=== PATIENT | male | born 1995 | race Caucasian/White ===

== ENCOUNTER → 2017-05-31 | Outpatient (CLI) | payer OTHER ==
[~2017-05-31] MED LIST: ALBU8.5H5 INH; GADOBUTROL 7.5 MMOL/7.5 ML PFS ONE
== END | disposition home or self-care (01) ==
LOC: RAD 17:04
PROVIDERS: ATTEND Family Medicine
DX: M54.5 Low back pain (principal)
CPT/HCPCS: 72158; A9585

== ENCOUNTER 2018-07-13 10:15 | Emergency (ER) | payer OTHER ==
[~2018-07-13] VITALS: Ht 172.7 cm; Wt 59.5 kg
[~2018-07-13 10:15] MED LIST changes: -GADOBUTROL 7.5 MMOL/7.5 ML PFS ONE
[2018-07-13 10:20] VITALS: BP 143/80
[2018-07-13] MEDS ORDERED: CEFTRIAXONE 1,000 MG ONE (10:52)
[2018-07-13] MEDS ORDERED: LIDOCAINE-MPF 1%, 2ML ONE (10:52)
[2018-07-13] MEDS ORDERED: LIDOCAINE-MPF 1%, 5ML ONE (10:52)
[2018-07-13] MEDS ORDERED: CEFTRIAXONE 1,000 MG IM ONE (11:00)
== END 2018-07-13 11:12 | disposition home or self-care (01) ==
LOC: ED 11:00
DX: K02.9 Dental caries, unspecified (principal); F17.200 Nicotine dependence, unspecified, uncomplicated
CPT/HCPCS: 96372; 99283; J0696

== ENCOUNTER 2018-10-26 13:05 | Inpatient (IN) | payer OTHER ==
[~2018-10-26] VITALS: Ht 172.7 cm; Wt 66.8 kg
--- NOTE | 2018-10-26 14:11 | NUR ---
PT PRESENTED TO ED WITH LEFT HIP PAIN. PT FELL SNOW BOARDING AND THEN WAS ABLE TO WALK. TODAY PT WAS SITTING IN A CHAIR FOR 12 HOURS AND UNABLE TO GET UP. PT A&OX4. PT PLACED IN ROOM AND PLACED ON BP AND CONT. PULSE OXIMETER. ASSESSMENT COMPLETED. PT WAS SEEN IN PIT AND RADIOLOGY AND LAB RESULTS PENDING.
[2018-10-26 14:13] LABS: MEAN CORPUSCULAR HGB CONC 34.1 g/dL (33.2-36.2); MEAN CORPUSCULAR VOLUME 90.7 fL (81-97); MEAN PLATELET VOLUME 8.3 fL (7.4-10.4); PLATELET COUNT 278 x10^3/uL (130-400); RED CELL DISTRIBUTION WIDTH 13.5 % (9.4-14.8)
[2018-10-26 14:22] LABS: ALANINE AMINOTRANSFERASE 19 U/L (12-78); ALBUMIN 2.7 g/dL (3.4-5.0); ANION GAP 8 mmol/L (5-15); CALCIUM 8.6 mg/dL (8.5-10.1); CHLORIDE 103 mmol/L (98-107)
[2018-10-26 14:24] LABS: ALKALINE PHOSPHATASE 123 U/L (45-117); BILIRUBIN,TOTAL 0.8 mg/dL (0.2-1.0); TOTAL PROTEIN 7.6 g/dL (6.4-8.2)
[2018-10-26 14:48] LABS: BASOPHILS # (AUTO) 0.03 x10^3/uL (0-0.3); BASOPHILS % (AUTO) 0 % (0-1); EOSINOPHILS # (AUTO) 0.06 x10^3/uL (0-0.8); EOSINOPHILS % (AUTO) 0 % (1-7); LYMPHOCYTES # (AUTO) 0.96 x10^3/uL (1-6.1); LYMPHOCYTES % (AUTO) 5 % (22-44); MD SCAN; MONOCYTES # (AUTO) 0.58 x10^3/uL (0-1.4); MONOCYTES % (AUTO) 3 % (2-9); NEUTROPHILS # (AUTO) 16.18 x10^3/uL (1.8-8.0); NEUTROPHILS % (AUTO) 91 % (42-75)
[2018-10-26 14:56] LABS: MICROSCOPIC AUTO
[2018-10-26 15:00] LABS: CULTURE INDICATED? NO
[2018-10-26] MEDS ORDERED: KETOROLAC 30 MG/1 ML ONE (15:53)
[2018-10-26] MEDS ORDERED: SODIUM CHLORIDE 0.9% 1,000ML IVBOLUS ONE (16:00)
[2018-10-26] MEDS ORDERED: KETOROLAC 30 MG/1 ML IVPush ONE (16:00)
[2018-10-26] MEDS ORDERED: SODIUM CHLORIDE FLUSH 10ML SYR IVF ONE (16:00)
--- NOTE | 2018-10-26 16:00 | NUR ---
PT WITH SEVERE PAIN LEFT HIP.
--- NOTE | 2018-10-26 17:30 | NUR ---
MULTIPLE ATTEMPTS FOR IV X 5. UNSUCCESSFUL. ULTRA SOUND GUIDED IV STARTED. PT TOLERATED WELL.
--- NOTE | 2018-10-26 18:00 | NUR ---
PT AWAITING CT SCAN. CT CALLED AND ALERTED THAT PT IS READY
--- NOTE | 2018-10-26 18:39 | NUR ---
pt taken to ct scan
--- NOTE | 2018-10-26 18:49 | NUR ---
PT BACK FROM CT SCAN.
--- NOTE | 2018-10-26 18:58 | NUR ---
REPORT GIVEN TO ESTEFANIA DE LEON
[2018-10-26] MEDS ORDERED: OMNIPAQUE 350 MG/ML, 100ML BOTTLE ONE (19:19)
[2018-10-26] MEDS ORDERED: PIPERACILLIN/TAZO/PMX 4.5GM 100 ML IV ONE (19:30)
[2018-10-26] MEDS ORDERED: SODIUM CHLORIDE FLUSH 10ML SYR IVF PRN (19:30)
[2018-10-26] MEDS ORDERED: MORPHINE SULFATE 4 MG/ML, 1ML IVPush PRN (19:30)
--- NOTE | 2018-10-26 19:40 | NUR ---
BLOOD CULTURES X 2 DRAWN, IV ABX STARTED. PT TOLERATING WELL.
[2018-10-26] MEDS ORDERED: VANCOMYCIN PER PHARMACY MC PRN (20:00)
[2018-10-26] MEDS ORDERED: BISACODYL 10 MG SUPP PR PRN (20:00)
[2018-10-26] MEDS: NICOTINE 21 MG/24 HR PATCH.TD24 TD SCH ×2 (20:00→20:41)
[2018-10-26] MEDS ORDERED: POLYETHYLENE GLYCOL 17 GM PACKET PO PRN (20:00)
[2018-10-26] MEDS ORDERED: POTASSIUM CHLORIDE 20 MEQ TAB.ER.PRT PO ONE (20:00)
[2018-10-26] MEDS ORDERED: PHARMACOKINETIC MONITORING MC PRN (20:30)
[2018-10-26] MEDS ORDERED: PHARMACOKINETIC CONSULTATION MC ONE (20:30)
[2018-10-26] MEDS: SODIUM CHLORIDE 0.9% 1,000 ML IV SCH (20:40)
[2018-10-26] MEDS: morphine SULFATE 10 MG/ML, 1ML IVPush PRN (20:41)
[2018-10-26] MEDS: KETOROLAC 30 MG/1 ML IVPush SCH (20:41)
[2018-10-26 20:49] VITALS: BP 119/66
[2018-10-26 21:28] LABS: AMPHETAMINE SCREEN, URINE Negative (Negative); BARBITURATE SCREEN, URINE Negative (Negative); BENZODIAZEPINE SCREEN, URINE Negative (Negative); CANNABINOID SCREEN, URINE Positive (Negative); COCAINE SCREEN, URINE Negative (Negative); METHADONE SCREEN, URINE Negative (Negative); OPIATE SCREEN, URINE Negative (Negative)
[2018-10-26] MEDS: PIPERACILLIN/TAZO/PMX 3.375GM 50 ML IV SCH (21:43)
[2018-10-26] MEDS: VANCOMYCIN 1,300 MG in SODIUM CHLORIDE 0.9% 250 ML IV SCH (22:47)
[2018-10-27 01:51] VITALS: BP 111/66
[2018-10-27] MEDS: KETOROLAC 30 MG/1 ML IVPush SCH ×4 (02:03→20:05)
[2018-10-27] MEDS: morphine SULFATE 10 MG/ML, 1ML IVPush PRN ×6 (02:03→22:20)
[2018-10-27] MEDS: PIPERACILLIN/TAZO/PMX 3.375GM 50 ML IV SCH ×4 (03:38→21:06)
[2018-10-27 08:05] VITALS: BP 122/62
[2018-10-27] MEDS: SENNA/DOCUSATE TABLET PO SCH (08:22)
[2018-10-27] MEDS: SODIUM CHLORIDE 0.9% 1,000 ML IV SCH ×2 (08:26→21:05)
[2018-10-27 09:57] LABS: MEAN CORPUSCULAR HEMOGLOBIN 30.3 pg (27.5-34.5); MEAN CORPUSCULAR HGB CONC 33.4 g/dL (33.2-36.2); MEAN CORPUSCULAR VOLUME 90.8 fL (81-97); MEAN PLATELET VOLUME 8.6 fL (7.4-10.4); PLATELET COUNT 277 x10^3/uL (130-400); RED BLOOD COUNT 4.52 x10^6/uL (4.38-5.82); RED CELL DISTRIBUTION WIDTH 13.7 % (9.4-14.8)
[2018-10-27 10:08] LABS: ALBUMIN 2.2 g/dL (3.4-5.0); ANION GAP 7 mmol/L (5-15); CALCIUM 8.6 mg/dL (8.5-10.1); CHLORIDE 105 mmol/L (98-107)
[2018-10-27 10:13] LABS: ALANINE AMINOTRANSFERASE 15 U/L (12-78); ALKALINE PHOSPHATASE 120 U/L (45-117); BILIRUBIN,TOTAL 0.7 mg/dL (0.2-1.0); CREATININE 0.85 mg/dL (0.7-1.3); TOTAL PROTEIN 6.2 g/dL (6.4-8.2)
[2018-10-27 10:39] LABS: MD YES
[2018-10-27 10:41] LABS: <PLATELET ESTIMATE> ADEQUATE; <PLT MORPHOLOGY> NORMAL PLT MORPH; ANISOCYTOSIS 1+; BAND#(MANUAL) 3.24 x10^3/uL; BANDS%(MANUAL) 20 % (0-7); EOS#(MANUAL) 0.16 x10^3/uL (0.0-0.8); EOS% (MANUAL) 1 % (1-7); LYMPH#(MANUAL) 0.97 x10^3/uL (1-6.1); LYMPHS% (MANUAL) 6 % (22-44); MONOS#(MANUAL) 1.13 x10^3/uL (0.3-2.7); MONOS% (MANUAL) 7 % (2-9); SEG#(MANUAL) 10.69 x10^3/uL (1.8-8); SEGS% (MANUAL) 66 % (42-75)
[2018-10-27] MEDS: VANCOMYCIN 1,300 MG in SODIUM CHLORIDE 0.9% 250 ML IV SCH ×2 (11:21→23:06)
[2018-10-27 13:18] VITALS: BP 136/79
[2018-10-27] MEDS: ACETAMINOPHEN 325 MG TABLET PO PRN (18:51)
[2018-10-27 19:46] VITALS: BP 106/68
[2018-10-28 01:15] VITALS: BP 121/75
[2018-10-28] MEDS: KETOROLAC 30 MG/1 ML IVPush SCH ×4 (01:46→20:36)
[2018-10-28] MEDS: PIPERACILLIN/TAZO/PMX 3.375GM 50 ML IV SCH ×2 (03:19→07:52)
[2018-10-28 05:39] LABS: MEAN CORPUSCULAR HEMOGLOBIN 30.9 pg (27.5-34.5); MEAN CORPUSCULAR VOLUME 90.7 fL (81-97); MEAN PLATELET VOLUME 9.3 fL (7.4-10.4); PLATELET COUNT 270 x10^3/uL (130-400); RED BLOOD COUNT 4.55 x10^6/uL (4.38-5.82); RED CELL DISTRIBUTION WIDTH 14.1 % (9.4-14.8)
[2018-10-28 05:40] LABS: ANION GAP 7 mmol/L (5-15); CALCIUM 8.2 mg/dL (8.5-10.1); CHLORIDE 108 mmol/L (98-107); CREATININE 0.78 mg/dL (0.7-1.3)
[2018-10-28 06:15] LABS: BASOPHILS # (AUTO) 0.07 x10^3/uL (0-0.3); BASOPHILS % (AUTO) 0 % (0-1); EOSINOPHILS # (AUTO) 0.07 x10^3/uL (0-0.8); EOSINOPHILS % (AUTO) 0 % (1-7); LYMPHOCYTES # (AUTO) 2.49 x10^3/uL (1-6.1); LYMPHOCYTES % (AUTO) 16 % (22-44); MD SCAN; MONOCYTES # (AUTO) 1.02 x10^3/uL (0-1.4); MONOCYTES % (AUTO) 6 % (2-9); NEUTROPHILS # (AUTO) 12.38 x10^3/uL (1.8-8.0); NEUTROPHILS % (AUTO) 77 % (42-75)
[2018-10-28 07:04] LABS: HCT (SEDRATE) 41.3 % (39.2-51.8)
[2018-10-28] MEDS: SENNA/DOCUSATE TABLET PO SCH (07:52)
[2018-10-28] MEDS: SODIUM CHLORIDE 0.9% 1,000 ML IV SCH ×2 (07:52→17:38)
[2018-10-28] MEDS: NICOTINE 21 MG/24 HR PATCH.TD24 TD SCH (07:53)
[2018-10-28 08:43] VITALS: BP 136/80
[2018-10-28] MEDS: morphine SULFATE 10 MG/ML, 1ML IVPush PRN ×2 (09:48→19:17)
[2018-10-28] MEDS: VANCOMYCIN 1,300 MG in SODIUM CHLORIDE 0.9% 250 ML IV SCH ×2 (09:48→22:33)
[2018-10-28] MEDS: OxyconTIN ER 10 MG TAB.ER PO SCH ×2 (11:22→22:33)
[2018-10-28 15:09] VITALS: BP 134/75
[2018-10-28] MEDS: ACETAMINOPHEN 325 MG TABLET PO PRN (15:18)
[2018-10-28 19:12] VITALS: BP 122/78
[2018-10-28] MEDS: ONDANSETRON 2MG/ML, 2ML IVPush PRN (20:39)
[2018-10-29 01:26] VITALS: BP 131/79
[2018-10-29] MEDS: morphine SULFATE 10 MG/ML, 1ML IVPush PRN ×4 (01:39→21:26)
[2018-10-29] MEDS: KETOROLAC 30 MG/1 ML IVPush SCH ×4 (02:21→19:49)
[2018-10-29] MEDS: SODIUM CHLORIDE 0.9% 1,000 ML IV SCH ×2 (04:22→14:11)
[2018-10-29 08:00] VITALS: BP 135/81
[2018-10-29] MEDS: SENNA/DOCUSATE TABLET PO SCH (08:47)
[2018-10-29] MEDS: NICOTINE 21 MG/24 HR PATCH.TD24 TD SCH (08:47)
[2018-10-29] MEDS: VANCOMYCIN 1,300 MG in SODIUM CHLORIDE 0.9% 250 ML IV SCH ×2 (10:00→19:49)
[2018-10-29] MEDS: OxyconTIN ER 10 MG TAB.ER PO SCH ×2 (10:40→22:49)
[2018-10-29] MEDS ORDERED: VANCOMYCIN 1,500 MG in SODIUM CHLORIDE 0.9% 250 ML IV ONE (11:00)
[2018-10-29 14:00] VITALS: BP 126/78
[2018-10-29] MEDS: ONDANSETRON 2MG/ML, 2ML IVPush PRN (17:52)
[2018-10-29 19:31] VITALS: BP 141/78
[2018-10-29] MEDS: ACETAMINOPHEN 325 MG TABLET PO PRN (19:49)
[2018-10-30 01:15] VITALS: BP 133/75
[2018-10-30] MEDS: morphine SULFATE 10 MG/ML, 1ML IVPush PRN (03:25)
[2018-10-30] MEDS: KETOROLAC 30 MG/1 ML IVPush SCH ×4 (03:25→21:42)
[2018-10-30] MEDS: VANCOMYCIN 1,300 MG in SODIUM CHLORIDE 0.9% 250 ML IV SCH ×3 (03:30→20:27)
[2018-10-30] MEDS: SODIUM CHLORIDE 0.9% 1,000 ML IV SCH (03:30)
[2018-10-30 08:25] VITALS: BP 153/73
[2018-10-30] MEDS: MORPHINE SULFATE 4 MG/ML, 1ML IVPush PRN ×4 (08:26→22:23)
[2018-10-30] MEDS: SENNA/DOCUSATE TABLET PO SCH (09:00)
[2018-10-30] MEDS: NICOTINE 21 MG/24 HR PATCH.TD24 TD SCH (09:00)
[2018-10-30 09:15] LABS: ANION GAP 9 mmol/L (5-15); CALCIUM 7.8 mg/dL (8.5-10.1); CHLORIDE 106 mmol/L (98-107)
[2018-10-30 09:16] LABS: CREATININE 0.64 mg/dL (0.7-1.3)
[2018-10-30 09:30] LABS: MEAN CORPUSCULAR HGB CONC 33.7 g/dL (33.2-36.2); MEAN CORPUSCULAR VOLUME 88.9 fL (81-97); MEAN PLATELET VOLUME 8.7 fL (7.4-10.4); PLATELET COUNT 309 x10^3/uL (130-400); RED BLOOD COUNT 4.08 x10^6/uL (4.38-5.82); RED CELL DISTRIBUTION WIDTH 13.7 % (9.4-14.8)
[2018-10-30 09:44] LABS: MD YES
[2018-10-30 09:47] LABS: BAND#(MANUAL) 0.83 x10^3/uL; BANDS%(MANUAL) 4 % (0-7); EOS#(MANUAL) 0.21 x10^3/uL (0.0-0.8); EOS% (MANUAL) 1 % (1-7); LYMPH#(MANUAL) 2.29 x10^3/uL (1-6.1); LYMPHS% (MANUAL) 11 % (22-44); MONOS#(MANUAL) 1.66 x10^3/uL (0.3-2.7); MONOS% (MANUAL) 8 % (2-9); SEG#(MANUAL) 15.81 x10^3/uL (1.8-8); SEGS% (MANUAL) 76 % (42-75)
[2018-10-30 09:48] LABS: <PLT MORPHOLOGY> NORMAL PLT MORPH; ANISOCYTOSIS 1+; TOXIC GRAN 1+
[2018-10-30 09:49] LABS: <PLATELET ESTIMATE> ADEQUATE
[2018-10-30] MEDS: OxyconTIN ER 10 MG TAB.ER PO SCH ×2 (10:23→22:51)
[2018-10-30] MEDS ORDERED: LORazepam 0.5MG TABLET PO ONE (11:30)
[2018-10-30 14:03] VITALS: BP 130/76
[2018-10-30] MEDS: LACTOBACILLUS CHEW TABLET PO SCH ×2 (15:12→20:27)
[2018-10-30 19:33] VITALS: BP 146/81
[2018-10-30] MEDS: ACETAMINOPHEN 325 MG TABLET PO PRN (20:27)
[2018-10-30] MEDS ORDERED: POTASSIUM CHLORIDE 20 MEQ TAB.ER.PRT PO ONE (20:30)
[2018-10-30] MEDS: ONDANSETRON 2MG/ML, 2ML IVPush PRN (20:40)
[2018-10-31 01:04] VITALS: BP 130/75
[2018-10-31] MEDS: KETOROLAC 30 MG/1 ML IVPush SCH ×3 (03:38→15:42)
[2018-10-31] MEDS: VANCOMYCIN 1,300 MG in SODIUM CHLORIDE 0.9% 250 ML IV SCH (03:38)
[2018-10-31] MEDS: MORPHINE SULFATE 4 MG/ML, 1ML IVPush PRN ×4 (08:00→23:59)
[2018-10-31 08:31] VITALS: BP 145/84
[2018-10-31] MEDS: NICOTINE 21 MG/24 HR PATCH.TD24 TD SCH (09:00)
[2018-10-31] MEDS: SENNA/DOCUSATE TABLET PO SCH (09:00)
[2018-10-31] MEDS: LACTOBACILLUS CHEW TABLET PO SCH ×3 (09:54→22:02)
[2018-10-31] MEDS: OxyconTIN ER 10 MG TAB.ER PO SCH ×2 (09:54→22:02)
[2018-10-31 11:55] LABS: CLOSTRIDIUM DIFFICILE ANTIGEN NEGATIVE; CLOSTRIDIUM DIFFICILE TOXIN NEGATIVE (Negative)
[2018-10-31] MEDS: CEFTAROLINE 600 MG in SODIUM CHLORIDE 0.9% 100 ML IV SCH (12:37)
[2018-10-31 13:03] VITALS: BP 131/77
[2018-10-31] MEDS: VANCOMYCIN 1,500 MG in SODIUM CHLORIDE 0.9% 250 ML IV SCH ×2 (14:01→22:02)
[2018-10-31] MEDS ORDERED: MIDAZOLAM 1 MG/ML, 2ML ONE (17:58)
[2018-10-31] MEDS ORDERED: FENTANYL PF 250 MCG/5ML ONE ×2 (17:58→18:47)
[2018-10-31] MEDS ORDERED: ALBUTEROL SULFATE 2.5 MG/3 ML NPPB PRN (19:00)
[2018-10-31] MEDS ORDERED: DIAZEPAM 5 MG/ML, 2ML IVPush PRN (19:00)
[2018-10-31] MEDS ORDERED: FENTANYL PF 100 MCG/2ML IV PRN (19:00)
[2018-10-31] MEDS ORDERED: ONDANSETRON ODT 8 MG PO PRN (19:00)
[2018-10-31] MEDS ORDERED: MORPHINE SULFATE 4 MG/ML, 1ML IVPush PRN (19:00)
[2018-10-31] MEDS ORDERED: ACETAMINOPHEN 325 MG TABLET PO PRN (19:00)
[2018-10-31] MEDS ORDERED: PROMETHAZINE 25 MG/ML, 1ML IV PRN (19:00)
[2018-10-31] MEDS ORDERED: HALOPERIDOL 5 MG/ML IV PRN (19:00)
[2018-10-31] MEDS ORDERED: PROMETHAZINE 12.5 MG SUPP PR PRN (19:00)
[2018-10-31] MEDS ORDERED: EPHEDRINE 50 MG/ML, 1ML IVPush PRN (19:00)
[2018-10-31] MEDS ORDERED: LABETALOL 5MG/ML, 20ML IV PRN (19:00)
[2018-10-31] MEDS ORDERED: MEPERIDINE/PF 25MG/0.5ML IVPush PRN (19:00)
[2018-10-31] MEDS ORDERED: hydrALAzine 20 MG/ML, 1ML IV PRN (19:00)
[2018-10-31] MEDS ORDERED: OXYcodone 5 MG/5 ML ORAL.SOL UDC PO PRN (19:00)
[2018-10-31] MEDS ORDERED: ONDANSETRON 2MG/ML, 2ML IV PRN (19:00)
[2018-10-31] MEDS ORDERED: MIDAZOLAM 1 MG/ML, 2ML IV PRN (19:00)
[2018-10-31] MEDS ORDERED: PROPOFOL 10 MG/ML, 20ML ONE ×2 (19:12→19:17)
[2018-10-31] MEDS ORDERED: SUCCINYLCHOLINE 20 MG/ML, 10ML ONE (19:17)
[2018-10-31] MEDS ORDERED: ROCURONIUM 10MG/ML,5ML ONE (19:17)
[2018-10-31] MEDS ORDERED: ONDANSETRON 2MG/ML, 2ML ONE (19:18)
[2018-10-31] MEDS ORDERED: FENTANYL PF 100 MCG/2ML ONE ×2 (19:31→19:35)
[2018-10-31] MEDS ORDERED: HYDROmorphone 2 MG/ML, 1ML ONE (19:35)
[2018-10-31] MEDS ORDERED: OXYcodone 5 MG/5 ML ORAL.SOL UDC ONE (19:36)
[2018-10-31] MEDS: HYDROmorphone 2 MG/ML, 1ML IVPush PRN ×3 (20:02→20:23)
[2018-11-01] MEDS: CEFTAROLINE 600 MG in SODIUM CHLORIDE 0.9% 100 ML IV SCH ×2 (00:04→12:36)
[2018-11-01] MEDS: ACETAMINOPHEN 325 MG TABLET PO PRN ×4 (02:26→20:02)
[2018-11-01] MEDS: MORPHINE SULFATE 4 MG/ML, 1ML IVPush PRN ×6 (04:07→21:42)
[2018-11-01] MEDS: VANCOMYCIN 1,500 MG in SODIUM CHLORIDE 0.9% 250 ML IV SCH ×3 (05:33→21:57)
[2018-11-01 05:46] LABS: MEAN CORPUSCULAR HEMOGLOBIN 29.6 pg (27.5-34.5); MEAN CORPUSCULAR HGB CONC 33.1 g/dL (33.2-36.2); MEAN CORPUSCULAR VOLUME 89.4 fL (81-97); MEAN PLATELET VOLUME 8.7 fL (7.4-10.4); PLATELET COUNT 307 x10^3/uL (130-400); RED BLOOD COUNT 4.14 x10^6/uL (4.38-5.82); RED CELL DISTRIBUTION WIDTH 13.8 % (9.4-14.8)
[2018-11-01 05:57] LABS: ANION GAP 8 mmol/L (5-15); CALCIUM 7.9 mg/dL (8.5-10.1); CHLORIDE 101 mmol/L (98-107); CREATININE 0.62 mg/dL (0.7-1.3)
[2018-11-01 06:51] LABS: MD YES
[2018-11-01 07:16] LABS: BAND#(MANUAL) 1.77 x10^3/uL; BANDS%(MANUAL) 10 % (0-7); EOS#(MANUAL) 0.35 x10^3/uL (0.0-0.8); EOS% (MANUAL) 2 % (1-7); LYMPH#(MANUAL) 1.06 x10^3/uL (1-6.1); LYMPHS% (MANUAL) 6 % (22-44); SEG#(MANUAL) 14.51 x10^3/uL (1.8-8); SEGS% (MANUAL) 82 % (42-75)
[2018-11-01 07:18] LABS: <PLATELET ESTIMATE> ADEQUATE; <PLT MORPHOLOGY> NORMAL PLT MORPH; ANISOCYTOSIS 1+
[2018-11-01 07:43] VITALS: BP 133/82
[2018-11-01] MEDS: NICOTINE 21 MG/24 HR PATCH.TD24 TD SCH (09:00)
[2018-11-01] MEDS: SENNA/DOCUSATE TABLET PO SCH (09:00)
[2018-11-01] MEDS: LACTOBACILLUS CHEW TABLET PO SCH ×3 (09:50→19:57)
[2018-11-01] MEDS: OxyconTIN ER 10 MG TAB.ER PO SCH ×2 (09:50→22:38)
[2018-11-01 15:41] VITALS: BP 121/82
[2018-11-01] MEDS ORDERED: LORazepam 2 MG/ML, 1ML IVPush ONE (16:00)
[2018-11-01] MEDS ORDERED: MORPHINE SULFATE 4 MG/ML, 1ML IVPush ONE (16:00)
[2018-11-01 19:32] VITALS: BP 138/82
[2018-11-02] MEDS: CEFTAROLINE 600 MG in SODIUM CHLORIDE 0.9% 100 ML IV SCH ×2 (00:04→11:28)
[2018-11-02] MEDS: MORPHINE SULFATE 4 MG/ML, 1ML IVPush PRN ×6 (01:32→21:08)
[2018-11-02 02:00] VITALS: BP 121/70
[2018-11-02 05:12] LABS: MEAN CORPUSCULAR HEMOGLOBIN 30.6 pg (27.5-34.5); MEAN CORPUSCULAR HGB CONC 34.7 g/dL (33.2-36.2); MEAN CORPUSCULAR VOLUME 88.2 fL (81-97); MEAN PLATELET VOLUME 8.5 fL (7.4-10.4); PLATELET COUNT 476 x10^3/uL (130-400); RED BLOOD COUNT 4.13 x10^6/uL (4.38-5.82); RED CELL DISTRIBUTION WIDTH 14.2 % (9.4-14.8)
[2018-11-02 05:19] LABS: CHLORIDE 104 mmol/L (98-107)
[2018-11-02 05:30] LABS: ANION GAP 10 mmol/L (5-15); CALCIUM 8.3 mg/dL (8.5-10.1); CREATININE 0.71 mg/dL (0.7-1.3); VANCOMYCIN,TROUGH 12.7 mcg/mL (5.0-10.0)
[2018-11-02] MEDS: VANCOMYCIN 1,600 MG in SODIUM CHLORIDE 0.9% 250 ML IV SCH ×3 (06:02→22:36)
[2018-11-02 06:16] LABS: BASOPHILS % (AUTO) 0 % (0-1); EOSINOPHILS # (AUTO) 0.12 x10^3/uL (0-0.8); EOSINOPHILS % (AUTO) 1 % (1-7); LYMPHOCYTES # (AUTO) 2.18 x10^3/uL (1-6.1); LYMPHOCYTES % (AUTO) 12 % (22-44); MD SCAN; MONOCYTES # (AUTO) 0.07 x10^3/uL (0-1.4); MONOCYTES % (AUTO) 0 % (2-9); NEUTROPHILS % (AUTO) 87 % (42-75)
[2018-11-02 08:15] VITALS: BP 103/72
[2018-11-02] MEDS: LACTOBACILLUS CHEW TABLET PO SCH ×3 (08:23→21:08)
[2018-11-02] MEDS: SENNA/DOCUSATE TABLET PO SCH (08:23)
[2018-11-02] MEDS: NICOTINE 21 MG/24 HR PATCH.TD24 TD SCH (08:24)
[2018-11-02] MEDS: OxyconTIN ER 10 MG TAB.ER PO SCH ×2 (10:20→22:36)
[2018-11-02] MEDS ORDERED: morphine SULFATE 10 MG/ML, 1ML IVPush ONE (13:00)
[2018-11-02] MEDS ORDERED: LORazepam 2 MG/ML, 1ML IVPush ONE (13:00)
[2018-11-02 13:20] VITALS: BP 122/73
[2018-11-02] MEDS ORDERED: GADOBUTROL 7.5 MMOL/7.5 ML PFS ONE (14:40)
[2018-11-02 19:57] VITALS: BP 133/78
[2018-11-03 00:45] VITALS: BP 122/74
[2018-11-03] MEDS: CEFTAROLINE 600 MG in SODIUM CHLORIDE 0.9% 100 ML IV SCH ×2 (01:23→16:57)
[2018-11-03] MEDS: MORPHINE SULFATE 4 MG/ML, 1ML IVPush PRN ×7 (01:23→21:15)
[2018-11-03 05:39] LABS: ANION GAP 5 mmol/L (5-15); CALCIUM 8.7 mg/dL (8.5-10.1); CHLORIDE 107 mmol/L (98-107)
[2018-11-03 05:44] LABS: CREATININE 0.73 mg/dL (0.7-1.3); VANCOMYCIN,TROUGH 23.8 mcg/mL (5.0-10.0)
[2018-11-03 05:56] LABS: BASOPHILS % (AUTO) 1 % (0-1); EOSINOPHILS # (AUTO) 0.26 x10^3/uL (0-0.8); EOSINOPHILS % (AUTO) 2 % (1-7); LYMPHOCYTES # (AUTO) 2.85 x10^3/uL (1-6.1); LYMPHOCYTES % (AUTO) 17 % (22-44); MD NO; MEAN CORPUSCULAR HEMOGLOBIN 30.4 pg (27.5-34.5); MEAN CORPUSCULAR HGB CONC 34.1 g/dL (33.2-36.2); MEAN CORPUSCULAR VOLUME 89.1 fL (81-97); MEAN PLATELET VOLUME 8.4 fL (7.4-10.4); MONOCYTES # (AUTO) 0.88 x10^3/uL (0-1.4); MONOCYTES % (AUTO) 5 % (2-9); NEUTROPHILS # (AUTO) 12.92 x10^3/uL (1.8-8.0); NEUTROPHILS % (AUTO) 76 % (42-75); PLATELET COUNT 594 x10^3/uL (130-400); RED BLOOD COUNT 4.15 x10^6/uL (4.38-5.82); RED CELL DISTRIBUTION WIDTH 13.7 % (9.4-14.8)
[2018-11-03 07:50] VITALS: BP 105/60
[2018-11-03] MEDS: LACTOBACILLUS CHEW TABLET PO SCH ×3 (08:10→22:10)
[2018-11-03] MEDS: NICOTINE 21 MG/24 HR PATCH.TD24 TD SCH (10:30)
[2018-11-03] MEDS: OxyconTIN ER 10 MG TAB.ER PO SCH ×2 (10:41→22:10)
[2018-11-03] MEDS: SENNA/DOCUSATE TABLET PO SCH (10:41)
[2018-11-03] MEDS: VANCOMYCIN 1,400 MG in SODIUM CHLORIDE 0.9% 250 ML IV SCH ×2 (14:49→22:10)
[2018-11-03 15:03] VITALS: BP 120/68
[2018-11-03 20:11] VITALS: BP 120/71
[2018-11-03] MEDS: ACETAMINOPHEN 325 MG TABLET PO PRN (20:26)
[2018-11-04] MEDS: CEFTAROLINE 600 MG in SODIUM CHLORIDE 0.9% 100 ML IV SCH ×3 (00:15→19:56)
[2018-11-04] MEDS: MORPHINE SULFATE 4 MG/ML, 1ML IVPush PRN ×6 (00:15→21:02)
[2018-11-04 02:45] VITALS: BP 107/68
[2018-11-04] MEDS: VANCOMYCIN 1,400 MG in SODIUM CHLORIDE 0.9% 250 ML IV SCH (06:11)
[2018-11-04 08:51] VITALS: BP 109/69
[2018-11-04] MEDS: SENNA/DOCUSATE TABLET PO SCH (09:00)
[2018-11-04] MEDS: LACTOBACILLUS CHEW TABLET PO SCH ×3 (09:20→19:49)
[2018-11-04] MEDS: ERGOCALCIFEROL 50,000 UNIT CAPSULE PO SCH (09:20)
[2018-11-04] MEDS: OxyconTIN ER 10 MG TAB.ER PO SCH ×2 (09:20→21:02)
[2018-11-04] MEDS: NICOTINE 21 MG/24 HR PATCH.TD24 TD SCH (09:21)
[2018-11-04] MEDS: DAPTOMYCIN 450 MG in SODIUM CHLORIDE 0.9% 100 ML IVPB SCH (11:34)
[2018-11-04 12:45] VITALS: BP 111/71
[2018-11-04] MEDS ORDERED: MIDAZOLAM 1 MG/ML, 2ML ONE (16:03)
[2018-11-04] MEDS ORDERED: FENTANYL PF 250 MCG/5ML ONE ×2 (16:04→16:45)
[2018-11-04] MEDS ORDERED: SUCCINYLCHOLINE 20 MG/ML, 10ML ONE (16:27)
[2018-11-04] MEDS ORDERED: ONDANSETRON 2MG/ML, 2ML ONE (16:27)
[2018-11-04] MEDS ORDERED: PROPOFOL 10 MG/ML, 20ML ONE (16:27)
[2018-11-04] MEDS ORDERED: ROCURONIUM 10 MG/ML,10ML ONE (16:27)
[2018-11-04] MEDS ORDERED: OXYcodone 5 MG/5 ML ORAL.SOL UDC PO PRN (16:30)
[2018-11-04] MEDS ORDERED: ONDANSETRON 2MG/ML, 2ML IV PRN (16:30)
[2018-11-04] MEDS ORDERED: MEPERIDINE/PF 25MG/0.5ML IVPush PRN (16:30)
[2018-11-04] MEDS ORDERED: ONDANSETRON ODT 8 MG PO PRN (16:30)
[2018-11-04] MEDS ORDERED: PROMETHAZINE 25 MG/ML, 1ML IV PRN (16:30)
[2018-11-04] MEDS ORDERED: ACETAMINOPHEN 325 MG TABLET PO PRN (16:30)
[2018-11-04] MEDS: FENTANYL PF 100 MCG/2ML IV PRN ×3 (17:36→17:57)
[2018-11-04] MEDS ORDERED: FENTANYL PF 100 MCG/2ML ONE ×2 (17:38→17:56)
[2018-11-04] MEDS ORDERED: LORazepam 2 MG/ML, 1ML ONE (17:39)
[2018-11-04] MEDS ORDERED: HYDROmorphone 1 MG/ML, 1ML ONE (17:39)
[2018-11-04] MEDS ORDERED: OXYcodone 5 MG/5 ML ORAL.SOL UDC ONE (17:39)
[2018-11-04] MEDS: LORazepam 2 MG/ML, 1ML IVPush PRN ×2 (17:46→18:01)
[2018-11-04] MEDS: HYDROmorphone 2 MG/ML, 1ML IVPush PRN ×3 (17:47→17:51)
[2018-11-04 18:35] VITALS: BP 125/70
[2018-11-04] MEDS: ACETAMINOPHEN 325 MG TABLET PO PRN (21:02)
[2018-11-05] MEDS: MORPHINE SULFATE 4 MG/ML, 1ML IVPush PRN ×7 (00:38→22:37)
[2018-11-05 00:55] VITALS: BP 109/68
[2018-11-05] MEDS: CEFTAROLINE 600 MG in SODIUM CHLORIDE 0.9% 100 ML IV SCH ×3 (04:12→20:45)
[2018-11-05 08:22] VITALS: BP 101/64
[2018-11-05] MEDS: LACTOBACILLUS CHEW TABLET PO SCH ×3 (09:00→20:45)
[2018-11-05] MEDS: SENNA/DOCUSATE TABLET PO SCH (09:00)
[2018-11-05] MEDS: NICOTINE 21 MG/24 HR PATCH.TD24 TD SCH (10:30)
[2018-11-05] MEDS: OxyconTIN ER 10 MG TAB.ER PO SCH ×2 (10:30→20:45)
[2018-11-05] MEDS: DAPTOMYCIN 450 MG in SODIUM CHLORIDE 0.9% 100 ML IVPB SCH (10:30)
[2018-11-05] MEDS ORDERED: LIDOCAINE-MPF 1%, 5ML ONE (10:52)
[2018-11-05] MEDS ORDERED: MIDAZOLAM 1 MG/ML, 5ML ONE (10:59)
[2018-11-05] MEDS ORDERED: FENTANYL PF 100 MCG/2ML ONE (10:59)
[2018-11-05] MEDS ORDERED: NALOXONE 1 MG/ML, 2ML ONE (10:59)
[2018-11-05] MEDS ORDERED: FLUMAZENIL 0.1 MG/1 ML, 5ML ONE (10:59)
[2018-11-05] MEDS ORDERED: OMNIPAQUE 350 MG/ML, 100ML BOTTLE ONE (11:18)
[2018-11-05 13:23] VITALS: BP 115/69
[2018-11-05 18:44] VITALS: BP 113/66
[2018-11-06 02:23] VITALS: BP 112/66
[2018-11-06] MEDS: MORPHINE SULFATE 4 MG/ML, 1ML IVPush PRN ×7 (02:27→21:43)
[2018-11-06] MEDS: CEFTAROLINE 600 MG in SODIUM CHLORIDE 0.9% 100 ML IV SCH (03:51)
[2018-11-06 07:24] VITALS: BP 108/67
[2018-11-06] MEDS: SENNA/DOCUSATE TABLET PO SCH (09:00)
[2018-11-06] MEDS: LACTOBACILLUS CHEW TABLET PO SCH ×3 (09:27→21:40)
[2018-11-06] MEDS: OxyconTIN ER 10 MG TAB.ER PO SCH ×2 (10:30→22:37)
[2018-11-06] MEDS: NICOTINE 21 MG/24 HR PATCH.TD24 TD SCH (10:30)
[2018-11-06] MEDS: DAPTOMYCIN 450 MG in SODIUM CHLORIDE 0.9% 100 ML IVPB SCH (10:31)
[2018-11-06 15:23] LABS: BASOPHILS # (AUTO) 0.26 x10^3/uL (0-0.3); BASOPHILS % (AUTO) 2 % (0-1); EOSINOPHILS # (AUTO) 0.26 x10^3/uL (0-0.8); EOSINOPHILS % (AUTO) 2 % (1-7); LYMPHOCYTES # (AUTO) 2.73 x10^3/uL (1-6.1); LYMPHOCYTES % (AUTO) 21 % (22-44); MD SCAN; MEAN CORPUSCULAR HEMOGLOBIN 29.4 pg (27.5-34.5); MEAN CORPUSCULAR HGB CONC 32.8 g/dL (33.2-36.2); MEAN CORPUSCULAR VOLUME 89.6 fL (81-97); MEAN PLATELET VOLUME 7.5 fL (7.4-10.4); MONOCYTES # (AUTO) 0.94 x10^3/uL (0-1.4); MONOCYTES % (AUTO) 7 % (2-9); NEUTROPHILS # (AUTO) 8.93 x10^3/uL (1.8-8.0); NEUTROPHILS % (AUTO) 68 % (42-75); PLATELET COUNT 918 x10^3/uL (130-400); RED BLOOD COUNT 3.95 x10^6/uL (4.38-5.82); RED CELL DISTRIBUTION WIDTH 13.7 % (9.4-14.8)
[2018-11-06 15:25] VITALS: BP 97/58
[2018-11-06 19:45] VITALS: BP 113/68
[2018-11-07] MEDS: MORPHINE SULFATE 4 MG/ML, 1ML IVPush PRN ×7 (00:50→23:13)
[2018-11-07 01:06] VITALS: BP 97/57
[2018-11-07 05:56] LABS: BASOPHILS # (AUTO) 0.09 x10^3/uL (0-0.3); BASOPHILS % (AUTO) 1 % (0-1); EOSINOPHILS # (AUTO) 0.25 x10^3/uL (0-0.8); EOSINOPHILS % (AUTO) 2 % (1-7); LYMPHOCYTES # (AUTO) 2.61 x10^3/uL (1-6.1); LYMPHOCYTES % (AUTO) 22 % (22-44); MD NO; MEAN CORPUSCULAR HGB CONC 33.3 g/dL (33.2-36.2); MEAN CORPUSCULAR VOLUME 90.1 fL (81-97); MEAN PLATELET VOLUME 8.1 fL (7.4-10.4); MONOCYTES % (AUTO) 6 % (2-9); NEUTROPHILS # (AUTO) 8.34 x10^3/uL (1.8-8.0); NEUTROPHILS % (AUTO) 70 % (42-75); PLATELET COUNT 807 x10^3/uL (130-400); RED BLOOD COUNT 3.92 x10^6/uL (4.38-5.82); RED CELL DISTRIBUTION WIDTH 13.9 % (9.4-14.8)
[2018-11-07 07:30] VITALS: BP 111/68
[2018-11-07] MEDS: SENNA/DOCUSATE TABLET PO SCH (08:39)
[2018-11-07] MEDS: LACTOBACILLUS CHEW TABLET PO SCH ×3 (08:39→20:01)
[2018-11-07] MEDS: NICOTINE 21 MG/24 HR PATCH.TD24 TD SCH (10:30)
[2018-11-07] MEDS: DAPTOMYCIN 450 MG in SODIUM CHLORIDE 0.9% 100 ML IVPB SCH (11:13)
[2018-11-07] MEDS: OxyconTIN ER 10 MG TAB.ER PO SCH (11:13)
[2018-11-07 13:25] VITALS: BP 110/69
[2018-11-07] MEDS ORDERED: morphine SULFATE 10 MG/ML, 1ML IVPush ONE (15:00)
[2018-11-07 19:04] VITALS: BP 112/66
[2018-11-08] MEDS: OxyconTIN ER 10 MG TAB.ER PO SCH ×3 (00:23→23:02)
[2018-11-08 03:45] VITALS: BP 101/62
[2018-11-08] MEDS: MORPHINE SULFATE 4 MG/ML, 1ML IVPush PRN ×6 (03:51→21:43)
[2018-11-08 07:49] VITALS: BP_SYST 83; BP_SYST 97; BP_DIAS 53; BP_DIAS 61
[2018-11-08] MEDS: LACTOBACILLUS CHEW TABLET PO SCH ×3 (08:31→21:43)
[2018-11-08] MEDS: SENNA/DOCUSATE TABLET PO SCH (08:31)
[2018-11-08 09:04] LABS: ALANINE AMINOTRANSFERASE 187 U/L (12-78); ALBUMIN 2.3 g/dL (3.4-5.0); ANION GAP 4 mmol/L (5-15); CALCIUM 9.4 mg/dL (8.5-10.1); CHLORIDE 102 mmol/L (98-107); CREATININE 0.77 mg/dL (0.7-1.3)
[2018-11-08 09:06] LABS: ALKALINE PHOSPHATASE 323 U/L (45-117); BILIRUBIN,TOTAL 0.4 mg/dL (0.2-1.0); TOTAL PROTEIN 8.9 g/dL (6.4-8.2)
[2018-11-08] MEDS: NICOTINE 21 MG/24 HR PATCH.TD24 TD SCH (10:30)
[2018-11-08] MEDS: DAPTOMYCIN 450 MG in SODIUM CHLORIDE 0.9% 100 ML IVPB SCH (11:13)
[2018-11-08 14:09] VITALS: BP 108/54
[2018-11-08 19:39] VITALS: BP 96/57
[2018-11-09 00:50] VITALS: BP 102/63
[2018-11-09] MEDS: MORPHINE SULFATE 4 MG/ML, 1ML IVPush PRN ×6 (02:37→21:02)
[2018-11-09 07:20] VITALS: BP 104/63
[2018-11-09] MEDS: SENNA/DOCUSATE TABLET PO SCH ×2 (09:00→10:26)
[2018-11-09] MEDS: LACTOBACILLUS CHEW TABLET PO SCH ×3 (10:26→21:02)
[2018-11-09] MEDS: OxyconTIN ER 10 MG TAB.ER PO SCH ×2 (10:26→23:14)
[2018-11-09] MEDS: NICOTINE 21 MG/24 HR PATCH.TD24 TD SCH (10:30)
[2018-11-09] MEDS: DAPTOMYCIN 450 MG in SODIUM CHLORIDE 0.9% 100 ML IVPB SCH (11:53)
[2018-11-09 12:54] VITALS: BP 103/64
[2018-11-09 18:49] VITALS: BP 109/66
[2018-11-10] MEDS: MORPHINE SULFATE 4 MG/ML, 1ML IVPush PRN ×7 (00:47→22:01)
[2018-11-10 01:21] VITALS: BP 106/63
[2018-11-10 06:11] LABS: BASOPHILS # (AUTO) 0.04 x10^3/uL (0-0.3); BASOPHILS % (AUTO) 0 % (0-1); EOSINOPHILS # (AUTO) 0.14 x10^3/uL (0-0.8); EOSINOPHILS % (AUTO) 1 % (1-7); HCT (SEDRATE) 37.6 % (39.2-51.8); LYMPHOCYTES # (AUTO) 2.72 x10^3/uL (1-6.1); LYMPHOCYTES % (AUTO) 22 % (22-44); MD NO; MEAN CORPUSCULAR HEMOGLOBIN 29.7 pg (27.5-34.5); MEAN CORPUSCULAR HGB CONC 33.4 g/dL (33.2-36.2); MEAN PLATELET VOLUME 7.7 fL (7.4-10.4); MONOCYTES # (AUTO) 0.53 x10^3/uL (0-1.4); MONOCYTES % (AUTO) 4 % (2-9); NEUTROPHILS # (AUTO) 8.85 x10^3/uL (1.8-8.0); NEUTROPHILS % (AUTO) 72 % (42-75); PLATELET COUNT 879 x10^3/uL (130-400); RED BLOOD COUNT 4.34 x10^6/uL (4.38-5.82); RED CELL DISTRIBUTION WIDTH 13.5 % (9.4-14.8)
[2018-11-10 06:25] LABS: ALANINE AMINOTRANSFERASE 182 U/L (12-78); ALBUMIN 2.6 g/dL (3.4-5.0); ANION GAP 4 mmol/L (5-15); CALCIUM 9.5 mg/dL (8.5-10.1); CHLORIDE 105 mmol/L (98-107); CREATININE 0.86 mg/dL (0.7-1.3)
[2018-11-10 06:32] LABS: ALKALINE PHOSPHATASE 285 U/L (45-117); BILIRUBIN,TOTAL 0.3 mg/dL (0.2-1.0); CREATINE KINASE, TOTAL 51 U/L (39-308); TOTAL PROTEIN 9.3 g/dL (6.4-8.2)
[2018-11-10 07:09] VITALS: BP 95/58
[2018-11-10] MEDS: SENNA/DOCUSATE TABLET PO SCH (09:00)
[2018-11-10] MEDS: LACTOBACILLUS CHEW TABLET PO SCH ×3 (09:23→22:01)
[2018-11-10] MEDS: DAPTOMYCIN 450 MG in SODIUM CHLORIDE 0.9% 100 ML IVPB SCH (10:24)
[2018-11-10] MEDS: OxyconTIN ER 10 MG TAB.ER PO SCH (10:24)
[2018-11-10] MEDS: NICOTINE 21 MG/24 HR PATCH.TD24 TD SCH (10:26)
[2018-11-10 12:35] VITALS: BP 110/71
[2018-11-10 18:44] VITALS: BP 104/60
[2018-11-11] MEDS: OxyconTIN ER 10 MG TAB.ER PO SCH ×3 (01:09→23:30)
[2018-11-11] MEDS: MORPHINE SULFATE 4 MG/ML, 1ML IVPush PRN ×7 (01:09→22:33)
[2018-11-11 01:20] VITALS: BP 100/64
[2018-11-11 06:49] VITALS: BP 94/62
[2018-11-11] MEDS: SENNA/DOCUSATE TABLET PO SCH (09:00)
[2018-11-11] MEDS: LACTOBACILLUS CHEW TABLET PO SCH ×3 (09:21→19:21)
[2018-11-11] MEDS: ERGOCALCIFEROL 50,000 UNIT CAPSULE PO SCH (09:21)
[2018-11-11 10:29] LABS: ALANINE AMINOTRANSFERASE 134 U/L (12-78); ALBUMIN 2.6 g/dL (3.4-5.0); ANION GAP 8 mmol/L (5-15); CALCIUM 9.4 mg/dL (8.5-10.1); CHLORIDE 104 mmol/L (98-107); CREATININE 0.75 mg/dL (0.7-1.3)
[2018-11-11] MEDS: NICOTINE 21 MG/24 HR PATCH.TD24 TD SCH (10:29)
[2018-11-11 10:30] LABS: BASOPHILS # (AUTO) 0.08 x10^3/uL (0-0.3); BASOPHILS % (AUTO) 1 % (0-1); EOSINOPHILS # (AUTO) 0.16 x10^3/uL (0-0.8); EOSINOPHILS % (AUTO) 1 % (1-7); LYMPHOCYTES # (AUTO) 2.98 x10^3/uL (1-6.1); LYMPHOCYTES % (AUTO) 26 % (22-44); MD NO; MEAN CORPUSCULAR HEMOGLOBIN 29.7 pg (27.5-34.5); MEAN CORPUSCULAR HGB CONC 33.5 g/dL (33.2-36.2); MEAN CORPUSCULAR VOLUME 88.6 fL (81-97); MEAN PLATELET VOLUME 7.4 fL (7.4-10.4); MONOCYTES # (AUTO) 0.68 x10^3/uL (0-1.4); MONOCYTES % (AUTO) 6 % (2-9); NEUTROPHILS # (AUTO) 7.44 x10^3/uL (1.8-8.0); NEUTROPHILS % (AUTO) 66 % (42-75); PLATELET COUNT 769 x10^3/uL (130-400); RED BLOOD COUNT 4.46 x10^6/uL (4.38-5.82); RED CELL DISTRIBUTION WIDTH 13.8 % (9.4-14.8)
[2018-11-11 10:31] LABS: ALKALINE PHOSPHATASE 270 U/L (45-117); BILIRUBIN,TOTAL 0.4 mg/dL (0.2-1.0); TOTAL PROTEIN 9.2 g/dL (6.4-8.2)
[2018-11-11] MEDS: DAPTOMYCIN 450 MG in SODIUM CHLORIDE 0.9% 100 ML IVPB SCH (11:09)
[2018-11-11 12:15] VITALS: BP 105/71
[2018-11-11 18:55] VITALS: BP 114/63
[2018-11-12 01:35] VITALS: BP 107/58
[2018-11-12] MEDS: MORPHINE SULFATE 4 MG/ML, 1ML IVPush PRN ×5 (02:31→22:40)
[2018-11-12 07:15] VITALS: BP 112/70
[2018-11-12] MEDS: OxyconTIN ER 10 MG TAB.ER PO SCH ×2 (08:19→22:40)
[2018-11-12] MEDS: LACTOBACILLUS CHEW TABLET PO SCH ×3 (08:19→22:40)
[2018-11-12] MEDS: SENNA/DOCUSATE TABLET PO SCH (08:19)
[2018-11-12] MEDS: NICOTINE 21 MG/24 HR PATCH.TD24 TD SCH (08:19)
[2018-11-12] MEDS: DAPTOMYCIN 450 MG in SODIUM CHLORIDE 0.9% 100 ML IVPB SCH (11:14)
[2018-11-12 13:08] VITALS: BP 105/64
[2018-11-12] MEDS ORDERED: CATHFLO-ALTEPLASE 2 MG/2 ML CATHFLUSH ONE (14:30)
[2018-11-12 17:02] LABS: ALANINE AMINOTRANSFERASE 97 U/L (12-78); ALBUMIN 2.5 g/dL (3.4-5.0); ANION GAP 6 mmol/L (5-15); CHLORIDE 104 mmol/L (98-107); CREATININE 0.77 mg/dL (0.7-1.3)
[2018-11-12 17:04] LABS: ALKALINE PHOSPHATASE 240 U/L (45-117); BILIRUBIN,TOTAL 0.2 mg/dL (0.2-1.0); TOTAL PROTEIN 8.6 g/dL (6.4-8.2)
[2018-11-12 19:23] VITALS: BP 117/67
[2018-11-13 01:44] VITALS: BP 104/62
[2018-11-13] MEDS: MORPHINE SULFATE 4 MG/ML, 1ML IVPush PRN ×3 (05:00→17:28)
[2018-11-13 06:50] VITALS: BP 118/75
[2018-11-13] MEDS: SENNA/DOCUSATE TABLET PO SCH (09:00)
[2018-11-13] MEDS: OxyconTIN ER 10 MG TAB.ER PO SCH (10:16)
[2018-11-13] MEDS: NICOTINE 21 MG/24 HR PATCH.TD24 TD SCH (10:16)
[2018-11-13] MEDS: LACTOBACILLUS CHEW TABLET PO SCH ×2 (10:16→17:28)
[2018-11-13] MEDS: DAPTOMYCIN 450 MG in SODIUM CHLORIDE 0.9% 100 ML IVPB SCH (11:23)
[2018-11-13] MEDS ORDERED: OXYcodone IR 5MG TABLET PO PRN (16:00)
[2018-11-13] MEDS ORDERED: ACID1TAB7 PO (16:27)
[2018-11-13] MEDS ORDERED: ERGO500017 PO (16:27)
[2018-11-13] MEDS ORDERED: DAPT500V6 IV (16:27)
[2018-11-13 18:15] VITALS: BP 120/77
== END 2018-11-13 18:41 | DRG 853 ==
LOC: ED 18:33 → EDIP 19:10 → 3NE 20:24
PROVIDERS: ADMIT Internal Medicine; ATTEND Internal Medicine
PROC: 0K9P00Z Drainage of Left Hip Muscle with Drainage Device, Open Approach (ICD-10-PCS; principal; 2018-11-01)
PROC: 0K9P00Z Drainage of Left Hip Muscle with Drainage Device, Open Approach (ICD-10-PCS; 2018-11-04)
PROC: 0J9C30Z Drainage of Pelvic Region Subcutaneous Tissue and Fascia with Drainage Device, Percutaneous Approach (ICD-10-PCS; 2018-11-05)
PROC: 02HV33Z Insertion of Infusion Device into Superior Vena Cava, Percutaneous Approach (ICD-10-PCS; 2018-11-11)
PROC: B5181ZA Fluoroscopy of Superior Vena Cava using Low Osmolar Contrast, Guidance (ICD-10-PCS; 2018-11-11)
PROC: B548ZZA Ultrasonography of Superior Vena Cava, Guidance (ICD-10-PCS; 2018-11-11)
DX: A41.02 Sepsis due to Methicillin resistant Staphylococcus aureus (principal); K68.19 Other retroperitoneal abscess; K68.12 Psoas muscle abscess; E43 Unspecified severe protein-calorie malnutrition; E87.1 Hypo-osmolality and hyponatremia; M60.09 Infective myositis, multiple sites; L02.214 Cutaneous abscess of groin; M00.9 Pyogenic arthritis, unspecified; M46.28 Osteomyelitis of vertebra, sacral and sacrococcygeal region; M86.8X8 Other osteomyelitis, other site; R65.20 Severe sepsis without septic shock; B18.2 Chronic viral hepatitis C; E55.9 Vitamin D deficiency, unspecified; E87.6 Hypokalemia; F11.90 Opioid use, unspecified, uncomplicated; F12.90 Cannabis use, unspecified, uncomplicated; F15.10 Other stimulant abuse, uncomplicated; F17.210 Nicotine dependence, cigarettes, uncomplicated; W17.89XA Other fall from one level to another, initial encounter; Y93.23 Activity, snow (alpine) (downhill) skiing, snowboarding, sledding, tobogganing and snow tubing; Y92.89 Other specified places as the place of occurrence of the external cause; Y99.8 Other external cause status; Z68.22 Body mass index [BMI] 22.0-22.9, adult; Z80.1 Family history of malignant neoplasm of trachea, bronchus and lung; Z80.7 Family history of other malignant neoplasms of lymphoid, hematopoietic and related tissues; Z86.14 Personal history of Methicillin resistant Staphylococcus aureus infection
CPT/HCPCS: 10030; 36415; 36573; 49406; 72193; 72197; 74177; 76700; 76705; 80048; 80053; 80074; 80202; 80307; 81001; 82306; 82550; 82607; 83605; 83690; 83735; 85025; 85651; 86140; 87040; 87070; 87075; 87077; 87102; 87147; 87186; 87205; 87324; 87521; 87522; 87806; 93306; 93970; 96374; 99156; 99157; A9585; C1729; G0378; J0712; J0878; J1170; J1885; J2250; J2405; J2543; J2704; J2997; J3010; J3370; Q9967; C1751; C1769; G0475; J0330; J2060; J2270; J2310; J7030; J7050

== ENCOUNTER → 2021-02-17 | Outpatient (CLI) | payer OTHER, MEDICAID ==
[~2021-02-17] MED LIST changes: +ACID1TAB7 PO; +DAPT500V6 IV; +ERGO500017 PO
[2021-02-17 09:10] LABS: BASOPHILS % (AUTO) 1 % (0-1); EOSINOPHILS % (AUTO) 3 % (1-7); LYMPHOCYTES % (AUTO) 42 % (22-44); MEAN CORPUSCULAR HEMOGLOBIN 29.8 pg (27.5-34.5); MEAN CORPUSCULAR HGB CONC 34.7 g/dL (33.2-36.2); MEAN PLATELET VOLUME 7.8 fL (7.4-10.4); MONOCYTES % (AUTO) 6 % (2-9); NEUTROPHILS % (AUTO) 48 % (42-75); PLATELET COUNT 351 x10^3/uL (130-400); RED BLOOD COUNT 5.28 x10^6/uL (4.38-5.82); RED CELL DISTRIBUTION WIDTH 13.5 % (9.4-14.8)
[2021-02-17 09:19] LABS: ALBUMIN 4.1 g/dL (3.4-5.0); ANION GAP 9 mmol/L (5-15); CALCIUM 9.4 mg/dL (8.5-10.1); CHLORIDE 106 mmol/L (98-107)
[2021-02-17 09:32] LABS: ALANINE AMINOTRANSFERASE 26 U/L (12-78); ALKALINE PHOSPHATASE 96 U/L (45-117); BILIRUBIN,TOTAL 0.8 mg/dL (0.2-1.0); CREATININE 0.89 mg/dL (0.7-1.3); TOTAL PROTEIN 8.6 g/dL (6.4-8.2)
== END | disposition home or self-care (01) ==
LOC: LAB 08:26
PROVIDERS: ATTEND Physician Assistant
DX: Z11.3 Encounter for screening for infections with a predominantly sexual mode of transmission (principal); Z11.1 Encounter for screening for respiratory tuberculosis; F11.20 Opioid dependence, uncomplicated; B19.20 Unspecified viral hepatitis C without hepatic coma
CPT/HCPCS: 36415; 80053; 84443; 85025; 86480; 86592; 86704; 86706; 86708; 87340; 87522; 87902